=== PATIENT | female | born 1980 | race African-American/Black ===

== ENCOUNTER 2016-10-10 15:19 | Inpatient (IN) | payer OTHER ==
[~2016-10-10] VITALS: Ht 154.9 cm; Wt 106.0 kg
[2016-10-10] MEDS ORDERED: LINZESS145 MCG PO (15:49)
[2016-10-10] MEDS ORDERED: PREDNISONE10 MG PO ×3 (15:50→20:47)
[2016-10-10] MEDS ORDERED: FLUOXETINE HCL20 MG PO (15:50)
[2016-10-10] MEDS ORDERED: DILANTIN100 MG PO (15:51)
[2016-10-10] MEDS ORDERED: FUROSEMIDE20 MG PO (15:51)
[2016-10-10] MEDS ORDERED: ARIPIPRAZOLE5 MG PO (15:52)
[2016-10-10] MEDS ORDERED: LOPRESSOR50 MG PO (15:52)
[2016-10-10 17:24] LABS: EOSINOPHIL (%) 0 % (0-5); HEMATOCRIT 40.4 % (36.0-46.0); IMMATURE GRANULOCYTE COUNT 0.2 K/uL; INSTRUMENT ABS NEUTROPHIL CT 3.7 K/uL; LYMPHOCYTE COUNT 1.4 K/uL (1.0-2.8); MCH 29.9 PG (29.0-34.0); MCHC 33.2 G/DL (30.0-36.0); MCV 90.2 FL (83-99); MONOCYTE (%) 2.6 % (3-12); MONOCYTE COUNT 0.1 K/uL (0-0.8); NEUTROPHIL (%) 68.6 % (45-76); NEUTROPHIL COUNT 3.7 K/uL (1.8-6.4); PLATELET COUNT 300 K/uL (156-360); RBC DIS.WIDTH-CV 11.8 % (11.8-14.6); RBC DIS.WIDTH-SD 38.9 % (39-53); RED BLOOD COUNT 4.48 M/uL (3.80-5.20); WHITE BLOOD COUNT 5.3 K/uL (4.1-10.2)
[2016-10-10 17:27] LABS: INTERNAL CONTROL VALID? YES
[2016-10-10 17:34] LABS: CHLORIDE 104 mEq/L (99-109); POTASSIUM 4.1 mEq/L (3.7-5.4); SODIUM 139 mEq/L (136-147)
[2016-10-10 17:36] LABS: GLUCOSE 99 mg/dL (70-99)
[2016-10-10 17:37] LABS: ANION GAP 7 MEQ/L (2-14)
[2016-10-10 17:39] LABS: SERUM ETHYL ALCOHOL < 10 mg/dL
[2016-10-10 17:40] LABS: GFR ESTIMATE (CALCULATED) > 59 mL/min/
[2016-10-10 17:41] LABS: UREA NITROGEN (BUN) 17 mg/dL (9-23)
[2016-10-10 17:43] LABS: SALICYLATE < 5.0 MG/DL (15-30)
[2016-10-10 17:43] LABS: ADD MEDTOX COMMENT Y; AMPHETAMINE NEGATIVE (500 ng/mL); BARBITURATES PRESUMPTIVE POSITIVE (200 ng/mL); BENZODIAZEPINES PRESUMPTIVE POSITIVE (150 ng/mL); COCAINE NEGATIVE (150 ng/mL); INTERNAL CONTROLS VALID? YES; METHADONE NEGATIVE (200 ng/mL); METHAMPHETAMINE NEGATIVE (500 ng/mL); OPIATES (MORPHINE) NEGATIVE (100 ng/mL); OXYCODONE NEGATIVE (100 ng/mL); PHENCYCLIDINE NEGATIVE (25 ng/mL); PROPOXYPHENE NEGATIVE (300 ng/mL); THC CANNABINOIDS NEGATIVE (50 ng/mL); TRICYCLIC ANTIDEPRESSANTS NEGATIVE (300 ng/mL)
[2016-10-10 18:05] LABS: BARBITUATES QUANT VALUE 0 NG/ML; BENZODIAZEPINES QUANT VALUE 0 NG/ML; BENZODIAZEPINES, URINE SCREEN Negative (200 ng/mL)
[2016-10-10] MEDS ORDERED: AMOXICILLIN875 MG PO (20:47)
[2016-10-10] MEDS ORDERED: VENTOLIN HFA18 GM IH (20:47)
[2016-10-10 23:24] VITALS: BP 100/60
== END 2016-10-11 18:41 | disposition home or self-care (01) | DRG 885 ==
LOC: EME 15:19 → EDOF 10-11 13:46
PROVIDERS: Emergency Medicine
DX: F25.0 Schizoaffective disorder, bipolar type (principal); F60.3 Borderline personality disorder; R45.851 Suicidal ideations; G47.00 Insomnia, unspecified; J39.8 Other specified diseases of upper respiratory tract; I25.2 Old myocardial infarction; Z87.891 Personal history of nicotine dependence; Z91.5 Personal history of self-harm; Z88.2 Allergy status to sulfonamides; Z88.1 Allergy status to other antibiotic agents; Z91.19 Patient's noncompliance with other medical treatment and regimen; Z93.0 Tracheostomy status
CPT/HCPCS: 80048; 84703; 84999; 85025; 90839; 99281; 99285; G0480

== ENCOUNTER 2016-11-17 19:17 | Emergency (ER) | payer OTHER ==
[~2016-11-17] VITALS: Ht 154.9 cm; Wt 106.8 kg
[~2016-11-17 19:17] MED LIST: AMOXICILLIN875 MG PO; ARIPIPRAZOLE5 MG PO; DILANTIN100 MG PO; FLUOXETINE HCL20 MG PO; FUROSEMIDE20 MG PO; LINZESS145 MCG PO; LOPRESSOR50 MG PO; PREDNISONE10 MG PO; VENTOLIN HFA18 GM IH
[2016-11-17 21:29] LABS: EOSINOPHIL (%) 1.5 % (0-5); EOSINOPHIL COUNT 0.1 K/uL (0-0.3); HEMATOCRIT 37.8 % (36.0-46.0); IMMATURE GRANULOCYTE (%) 0.3 % (0.0-0.7); INSTRUMENT ABS NEUTROPHIL CT 3.1 K/uL; LYMPHOCYTE COUNT 2.2 K/uL (1.0-2.8); MCHC 32.5 G/DL (30.0-36.0); MCV 92.2 FL (83-99); MEAN PLAT.VOLUME 10.3 uM^3 (9.5-12.4); MONOCYTE (%) 9.3 % (3-12); MONOCYTE COUNT 0.6 K/uL (0-0.8); NEUTROPHIL (%) 51.4 % (45-76); NEUTROPHIL COUNT 3.1 K/uL (1.8-6.4); PLATELET COUNT 186 K/uL (156-360); RBC DIS.WIDTH-CV 12.6 % (11.8-14.6); RBC DIS.WIDTH-SD 42.7 % (39-53)
[2016-11-17 21:46] LABS: CHLORIDE 110 mEq/L (99-109); POTASSIUM 3.9 mEq/L (3.7-5.4); SODIUM 141 mEq/L (136-147)
[2016-11-17 21:47] LABS: GLUCOSE 103 mg/dL (70-99)
[2016-11-17 21:49] LABS: ANION GAP 9 MEQ/L (2-14)
[2016-11-17 21:51] LABS: GFR ESTIMATE (CALCULATED) > 59 mL/min/
[2016-11-17 21:52] LABS: UREA NITROGEN (BUN) 15 mg/dL (9-23)
[2016-11-17] MEDS ORDERED: TYLENOL WITH C1 EACH PO (23:29)
[2016-11-18 01:48] VITALS: BP 114/64
== END 2016-11-18 01:50 | disposition home or self-care (01) ==
LOC: EME 19:17
PROVIDERS: Emergency Medicine
DX: S93.401A Sprain of unspecified ligament of right ankle, initial encounter (principal); J45.901 Unspecified asthma with (acute) exacerbation; J95.02 Infection of tracheostomy stoma; I25.2 Old myocardial infarction; J39.8 Other specified diseases of upper respiratory tract; Z87.891 Personal history of nicotine dependence; Z87.820 Personal history of traumatic brain injury
CPT/HCPCS: 71020; 73590; 80048; 83605; 85025; 87040; 93005; 94640; 99281; 99284; J1100; J7030

== ENCOUNTER 2017-01-10 05:52 | Emergency (ER) | payer OTHER ==
[~2017-01-10] VITALS: Ht 154.9 cm; Wt 110.4 kg
[~2017-01-10 05:52] MED LIST changes: +TYLENOL WITH C1 EACH PO
[2017-01-10 07:21] LABS: INTERNAL CONTROL VALID? YES
[2017-01-10 07:30] LABS: ADD MEDTOX COMMENT Y; AMPHETAMINE NEGATIVE (500 ng/mL); BARBITURATES PRESUMPTIVE POSITIVE (200 ng/mL); BENZODIAZEPINES NEGATIVE (150 ng/mL); COCAINE NEGATIVE (150 ng/mL); INTERNAL CONTROLS VALID? YES; METHADONE NEGATIVE (200 ng/mL); METHAMPHETAMINE NEGATIVE (500 ng/mL); OPIATES (MORPHINE) NEGATIVE (100 ng/mL); OXYCODONE NEGATIVE (100 ng/mL); PHENCYCLIDINE NEGATIVE (25 ng/mL); PROPOXYPHENE NEGATIVE (300 ng/mL); THC CANNABINOIDS NEGATIVE (50 ng/mL); TRICYCLIC ANTIDEPRESSANTS NEGATIVE (300 ng/mL)
[2017-01-10 08:22] LABS: BARBITUATES QUANT VALUE 0 NG/ML
[2017-01-10 08:31] LABS: ADD MIUA? YES; BILIRUBIN NEGATIVE; BLOOD SMALL; COLOR STRAW ((YELLOW)); GLUCOSE (STRIP) NEGATIVE; KETONES NEGATIVE; LEUKOCYTES NEGATIVE; NITRITE NEGATIVE; PROTEIN (STRIP) NEGATIVE; SPECIFIC GRAVITY 1.009 (1.000-1.030); UROBILINOGEN 0.2 MG/DL (0.2-1.0)
[2017-01-10 08:38] LABS: BACTERIA RARE /HPF; EPITHELIAL CELLS RARE /HPF; MUCUS NONE SEEN /LPF; RED BLOOD CELLS 0-5 /HPF (0-5); UCUL ADDED? NO; WHITE BLOOD CELLS 0-5 /HPF (0-5)
[2017-01-10 09:20] LABS: HEMATOCRIT 38.3 % (36.0-46.0); MCH 30.4 PG (29.0-34.0); MCHC 33.4 G/DL (30.0-36.0); MEAN PLAT.VOLUME 10.2 uM^3 (9.5-12.4); PLATELET COUNT 232 K/uL (156-360); RBC DIS.WIDTH-CV 11.9 % (11.8-14.6); RBC DIS.WIDTH-SD 39.7 % (39-53); RED BLOOD COUNT 4.21 M/uL (3.80-5.20); WHITE BLOOD COUNT 5.2 K/uL (4.1-10.2)
[2017-01-10 09:39] LABS: CHLORIDE 101 mEq/L (99-109); POTASSIUM 4.2 mEq/L (3.7-5.4); SODIUM 138 mEq/L (136-147)
[2017-01-10 09:41] LABS: GLUCOSE 96 mg/dL (70-99)
[2017-01-10 09:42] LABS: ANION GAP 10 MEQ/L (2-14)
[2017-01-10 09:44] LABS: SERUM ETHYL ALCOHOL < 10 mg/dL
[2017-01-10 09:45] LABS: GFR ESTIMATE (CALCULATED) > 59 mL/min/
[2017-01-10 09:46] LABS: UREA NITROGEN (BUN) 10 mg/dL (9-23)
[2017-01-10 13:57] VITALS: BP 128/75
== END 2017-01-10 14:10 | disposition home or self-care (01) ==
LOC: EME 05:52
PROVIDERS: Emergency Medicine
DX: F32.9 Major depressive disorder, single episode, unspecified (principal); F25.0 Schizoaffective disorder, bipolar type; F63.81 Intermittent explosive disorder; F60.3 Borderline personality disorder; I25.2 Old myocardial infarction; Z87.891 Personal history of nicotine dependence
CPT/HCPCS: 80048; 81003; 84703; 84999; 85027; 90839; 99281; 99285; G0480

== ENCOUNTER 2017-03-12 21:04 | Emergency (ER) | payer OTHER ==
[~2017-03-12] VITALS: Ht 154.9 cm; Wt 111.8 kg
[2017-03-13] MEDS ORDERED: DUONEB 2.5-0.5 M3 ML IH (05:13)
[2017-03-13] MEDS ORDERED: ANTIPSYCHOTIC PO (05:23)
[2017-03-13] MEDS ORDERED: D2 PO (05:24)
[2017-03-13] MEDS ORDERED: OMEPRAZOLE40 M1 PO (05:26)
[2017-03-13 07:24] VITALS: BP 135/99
== END 2017-03-13 07:27 | disposition home or self-care (01) ==
LOC: EME 21:04
DX: F41.9 Anxiety disorder, unspecified (principal); R26.2 Difficulty in walking, not elsewhere classified; Z04.8 Encounter for examination and observation for other specified reasons; Z99.3 Dependence on wheelchair; Z93.0 Tracheostomy status; I25.2 Old myocardial infarction; F60.3 Borderline personality disorder; Z87.820 Personal history of traumatic brain injury; Z87.891 Personal history of nicotine dependence; Z88.2 Allergy status to sulfonamides; Z88.1 Allergy status to other antibiotic agents; Z88.8 Allergy status to other drugs, medicaments and biological substances
CPT/HCPCS: 99281; 99284

== ENCOUNTER 2017-08-31 08:44 | Emergency (ER) | payer OTHER ==
[~2017-08-31] VITALS: Ht 154.9 cm; Wt 116.8 kg
[~2017-08-31 08:44] MED LIST changes: +ANTIPSYCHOTIC PO; +D2 PO; +DUONEB 2.5-0.5 M3 ML IH; +OMEPRAZOLE40 M1 PO
[2017-08-31 10:04] LABS: APPEARANCE CLEAR ((CLEAR)); BILIRUBIN NEGATIVE; BLOOD NEGATIVE; COLOR YELLOW ((YELLOW)); GLUCOSE (STRIP) NEGATIVE; KETONES NEGATIVE; LEUKOCYTES NEGATIVE; NITRITE NEGATIVE; PROTEIN (STRIP) NEGATIVE; SPECIFIC GRAVITY 1.027 (1.000-1.030); UCUL ADDED? NO; UROBILINOGEN 0.2 MG/DL (0.2-1.0)
[2017-08-31 10:15] LABS: BASOPHIL (%) 0.5 % (0-1); EOSINOPHIL (%) 1.9 % (0-5); EOSINOPHIL COUNT 0.1 K/uL (0-0.3); HEMATOCRIT 37.1 % (36.0-46.0); HEMOGLOBIN 12.2 G/DL (11.9-15.5); IMMATURE GRANULOCYTE (%) 0.3 % (0.0-0.7); LYMPHOCYTE COUNT 2.3 K/uL (1.0-2.8); MCH 29.6 PG (29.0-34.0); MCHC 32.9 G/DL (30.0-36.0); MONOCYTE (%) 8.6 % (3-12); MONOCYTE COUNT 0.5 K/uL (0-0.8); NEUTROPHIL (%) 51.7 % (45-76); NEUTROPHIL COUNT 3.3 K/uL (1.8-6.4); PLATELET COUNT 252 K/uL (156-360); RBC DIS.WIDTH-CV 13.1 % (11.8-14.6); RBC DIS.WIDTH-SD 42.8 % (39-53); RED BLOOD COUNT 4.12 M/uL (3.80-5.20); WHITE BLOOD COUNT 6.3 K/uL (4.1-10.2)
[2017-08-31 10:45] LABS: QUANTITATIVE HCG < 4.0 MIU/ML; TROP-I INTERPRETATION NEGATIVE; TROPONIN-I < 0.01 ng/mL (0.0-0.30)
[2017-08-31 11:46] LABS: ALBUMIN 3.9 G/DL (3.2-4.8); CHLORIDE 108 MEQ/L (99-109); POTASSIUM 4.1 MEQ/L (3.7-5.4); SODIUM 140 MEQ/L (136-147); TOTAL BILIRUBIN 0.3 MG/DL (0.0-1.0)
[2017-08-31 11:52] LABS: ALKALINE PHOSPHATASE 83 IU/L (3-129); ALT (GPT) 14 IU/L (3-49); AST (GOT) 15 IU/L (2-34); CREATININE 0.6 MG/DL (0.6-1.3); GFR ESTIMATE (CALCULATED) > 59 mL/min/; GLUCOSE 108 mg/dL (70-99); TOTAL PROTEIN 7.4 G/DL (6.4-8.3); UREA NITROGEN (BUN) 14 mg/dL (9-23)
[2017-08-31 14:25] VITALS: BP 97/66
== END 2017-08-31 14:26 | disposition home or self-care (01) ==
LOC: EME 08:44
PROVIDERS: Emergency Medicine
DX: M26.629 Arthralgia of temporomandibular joint, unspecified side (principal); K12.0 Recurrent oral aphthae; S00.511A Abrasion of lip, initial encounter; Z93.0 Tracheostomy status; Z87.820 Personal history of traumatic brain injury; G40.909 Epilepsy, unspecified, not intractable, without status epilepticus; F60.3 Borderline personality disorder; J45.909 Unspecified asthma, uncomplicated; I25.2 Old myocardial infarction; Z86.19 Personal history of other infectious and parasitic diseases; Z87.891 Personal history of nicotine dependence; Z88.1 Allergy status to other antibiotic agents; Z88.2 Allergy status to sulfonamides
CPT/HCPCS: 71045; 80053; 81003; 83605; 83735; 84484; 84702; 85025; 93005; 99281; 99285